=== PATIENT | female | born 1975 | race Caucasian/White ===

== ENCOUNTER 2016-12-06 11:03 | Emergency (ER) | payer MEDICAID, OTHER ==
[2016-12-06 11:03] VITALS: BMI 44.4
[2016-12-06 11:18] VITALS: BP 110/75; PULSE 80; RESP 16; TEMP 98.3; O2SAT 98
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
== END 2016-12-06 12:05 | disposition home or self-care (01) ==
LOC: C.ER 11:03
DX: M17.11 Unilateral primary osteoarthritis, right knee (principal)